=== PATIENT | male | born 1960 | race Caucasian/White ===

== ENCOUNTER 2019-10-11 11:14 | Day surgery (SDC) | payer BC ==
[~2019-10-11] VITALS: Ht 193 cm; Wt 97.4 kg
--- NOTE | 2019-10-11 12:05 | NUR ---
Initial visit; Patient thanked [employer] for offering prayer and God's blessings prior to his surgical procedure.
[2019-10-11 12:06] VITALS: BP 114/77; PULSE 68; TEMP 98.1
[2019-10-11 14:45] VITALS: BP 122/85; PULSE 55; TEMP 97.2
--- NOTE | 2019-10-11 14:45 | NUR ---
Pt to [facility] [place] bay [facility] via cart from recovery. Pt awake and alert. in room. Pt denies pain or nausea. Pudding and water given per pt request. Side rails up x2. Call light within reach.
[2019-10-11 15:00] VITALS: BP 114/69; PULSE 55
--- NOTE | 2019-10-11 15:00 | NUR ---
Pt continues to rest. Tolerating food and fluids without difficulties. Will continue to monitor. Call light within reach.
[2019-10-11 15:15] VITALS: BP 116/75; PULSE 64
--- NOTE | 2019-10-11 15:15 | NUR ---
Pt c/o pain to right flank 05/06. Preston 5/325mg 1 tab po given per PRN orders. Will continue to monitor. Call light within reach.
[2019-10-11 15:30] VITALS: BP 112/68; PULSE 58
--- NOTE | 2019-10-11 15:35 | NUR ---
The patient ambulated to the bathroom with the stand by assistance of one and appeared to tolerate the activity well. Will continue to monitor the patient.
[2019-10-11 16:00] VITALS: BP 121/81; PULSE 55
--- NOTE | 2019-10-11 16:00 | NUR ---
The patient voided successfully and voices a desire to be discharged home. The patient's IV to his left hand was removed and a pressure dressing was applied to the site. Discharge instructions were reviewed with the patient and his at this time. They both verbalized understanding and have no questions for the nurse at this time. The nurse instructed the patient to get dressed and notify the staff when he is ready to be escorted out.
--- NOTE | 2019-10-11 16:15 | NUR ---
The patient was escorted out via wheelchair to a private vehicle by ELVIN Foreman. The patient's belongings and discharge paperwork were sent with him. The patient's is present to drive her home.
== END 2019-10-11 16:15 | disposition home or self-care (01) ==
LOC: SDCO 11:14
DX: N20.1 Calculus of ureter (principal); Z80.0 Family history of malignant neoplasm of digestive organs
CPT/HCPCS: C1769; C2617; J0690; J1100; J1885; J2405; J2704; J3010; J7120; Q9967